=== PATIENT | male | born 1985 | race Caucasian/White ===

== ENCOUNTER → 2023-10-18 | Outpatient (CLI) | payer OTHER, SELFPAY ==
--- NOTE | 2023-10-18 17:50 | US_ITS ---
STUDY: THYROID ULTRASOUND REASON FOR EXAM: Male, 38 years old. THYROMEGALY TECHNIQUE: Ultrasound evaluation of the thyroid was performed with real-time and static bae-scale imaging. COMPARISON: None. FINDINGS: RIGHT LOBE: The right lobe of the thyroid gland is enlarged and measures 5.1 cm x 2.2 cm x 2.2 cm. There is a homogeneous echotexture. A 2 mm x 2 mm x 1 mm cyst is seen in the upper pole of the right lobe. LEFT LOBE: The left lobe of the thyroid gland measures 4.7 cm x 1.4 cm x 2.2 cm. There is a homogeneous echotexture. There are no demonstrated solid, cystic or complex lesions. ISTHMUS: The isthmus measures 4.0 mm. The regional lymph nodes are normal. US/Thyroid IMPRESSION: Mild enlargement of the right lobe of the thyroid. 2 mm x 2 mm x 1 mm cyst in the upper pole of the right lobe of the thyroid. Electronically Signed: Hiram Philippe MD at 14:37 EST ,
== END | disposition home or self-care (01) ==
LOC: US 17:48
PROVIDERS: PCP Internal Medicine; Visit Provider Internal Medicine
DX: E01.0 Iodine-deficiency related diffuse (endemic) goiter (principal)
CPT/HCPCS: 76536

== ENCOUNTER → 2024-08-20 | Outpatient (CLI) | payer OTHER, SELFPAY ==
--- NOTE | 2024-08-20 16:05 | RAD_ITS ---
INDICATION: left knee pain -- L knee pain, with sunrise view EXAMINATION/TECHNIQUE: X-RAY - LEFT XR Knee Complete 4 Views or More COMPARISON: None. FINDINGS: No acute fracture or malalignment. No significant degenerative changes are seen. No joint effusion. The soft tissues are unremarkable. RAD/Knee 4 or More Views IMPRESSION: No acute radiographic abnormalities. Electronically Signed: Fredi Velázquez MD at 17:29 EDT ,
== END | disposition home or self-care (01) ==
PROVIDERS: PCP Internal Medicine; Referring Provider Internal Medicine; Visit Provider Internal Medicine
DX: M25.562 Pain in left knee (principal)
CPT/HCPCS: 73564

== ENCOUNTER 2024-09-04 08:12 | Outpatient (RCR) | payer OTHER, BC, SELFPAY ==
--- NOTE | 2024-09-04 09:26 | HP.PTEVAL_ITS ---
Patient's Visit Information Visit Information Visit Information: ROCIO RODRIGUEZ is a 39 year old M referred to Physical Therapy by Dr. Viridiana Brady DO with a diagnosis of L knee pain. Date of Evaluation: 09/04/24 Physical Therapist: Teddy Garcia DPT Visit Plan Frequency: 1x/Week Duration: 6 Weeks Plan: 1) quad stretching, foam rolling 2) eccentric quad strengthening to progressively load L patellar tendon Subjective Subjective: Pt. is here today for his initial evaluation with diagnosis of L knee pain. Pt. reports having pain for ~3 weeks now, no mech of injury. Pt. reports increased pain with kneeling on soft surfaces, and with hyper flexion. Stairs are also painful. Pt. reports increased pain at night if doing those movements. Pt. reports no N/T. Pt. reports pain at medial patellar tendon. Pt. reports some occasional increase in pain with walking. His largest complaint is with kneeling. He reports kneeling on a soft surface, rather than hard surfaces. Pt. goes to do the gym and is able to complete without issues. Pt. is hopeful to reduce symptoms in order to get back to all recreational and work activities without limitations. Pain L knee: Pain Intensity (Out of 10): 1 Pain Intensity Range: 0 and 5 Objective Objective: POSTURE: Pt. has decent posture in stance. No major knee abnormalities. PALPATION: Pt. has tenderness along patellar tendon, no pain with rest of palpation. NEURO: normal sensation and normal DTR of BLEs. ROM: L knee: 0-0-135deg. Pain at end range flexion, reports tearing like sensation at patellar tendon. MMT: L knee: ext 56.3#, flexion 30.1#, R knee: ext 49.1#, flexion 28.9#. GAIT: Pt. has normal gait pattern without increase in symptoms. Special Tests L Knee Kelin - Meniscus: Negative L Knee Apley - Meniscus: Negative L Knee Anterior Drawer - ACL: Negative L Knee Posterior Drawer - PCL: Negative L Knee Valgus - MCL: Negative L Knee Varus - LCL: Negative L Knee Patellar Apprehension - PFS: Negative Balance/Special Test Scores Lower Extremity Functional Score: 63 Goals Goal 1:: LTG: Pt. to be I with HEP. Goal Time Frame: 4-6 Weeks Goal 2:: STG: Pt. to sleep throughout the night without increase in symptoms. Goal Time Frame: 2 Weeks Goal 3:: LTG: Pt. to have no pain with kneeling. Goal Time Frame: 4-6 Weeks Goal 4:: LTG: Pt. complete all recreational activities without increase in L k nee pain. Goal Time Frame: 4-6 Weeks Rehabilitation Potential Physical Therapy Diagnosis: Pt. has signs and symptoms consistent with L knee pain. Pt. has signs suggesting patellar tendinitis. I did not see much consistent with meniscal pathology at this point in time. Pt. would benefit from PT to work on quad stretching, and eccentric loading of L quad. Rehabilitation Potential: Excellent Anticipated Interventions Patient/Client Instruction: Educate patient on: Condition, Plan of Care, Risk Factors and Benefits of Fitness Program For the Purpose of:: To improve self management, To prevent re-injury, To improve ability to perform tasks related to life management and To improve tolerance to ADL's Therapeutic Exercise to Include: Strength training, Power training, Endurance training and Flexibilty training For the Purpose of:: To decrease pain, To increase ROM, To improve nutrient delivery to tissue, To increase oxygenation perfusion, To improve muscle performance and motor function, To increase tolerance to activity/condition/position, To decrease level of supervision to perform tasks and To improve ability of physical actions for home/community/work/leisure Text: Thank you for the opportunity to evaluate your patient. For Medicare and Medicare HMO plans, please review the plan of care and approve it. It will need to be FAXED BACK to us at [phone] for Medicare purposes. For Medicare only, by signing this I certify the plan of care. Please let me know if there are questions or concerns regarding this plan of care. Physician Signature: Date:
--- NOTE | 2024-11-20 08:17 | HP.PTDCSUM ---
Discharge Summary D/C summary: It has been my pleasure to treat ROCIO RODRIGUEZ referred by Dr. Viridiana Brady DO, with the diagnosis of L knee pain for a total of 1 visit(s). Discharge Date: Please see the following information for a summary of their discharge status. Pain L knee: Pain Intensity (Out of 10): 1 Goals Goal 1:: LTG: Pt. to be I with HEP. Goal 2:: STG: Pt. to sleep throughout the night without increase in symptoms. Goal 3:: LTG: Pt. to have no pain with kneeling. Goal 4:: LTG: Pt. complete all recreational activities without increase in L knee pain. Plan Plan: 1) quad stretching, foam rolling 2) eccentric quad strengthening to progressively load L patellar tendon D/C Information d/c sentence: If there are questions or concerns regarding this patient's physical therapy, please feel free to call me at [phone]. Thank you for the referral of this patient. Sincerely, Teddy Albaos, DPT Balance/Gait/Functional tests Balance/Special Test Scores Lower Extremity Functional Score: 63
== END 2024-09-04 19:00 | disposition home or self-care (01) ==
LOC: PT 08:12
PROVIDERS: PCP Internal Medicine; Referring Provider Internal Medicine; Visit Provider Internal Medicine
DX: M25.562 Pain in left knee (principal)
CPT/HCPCS: 97110; 97161

== ENCOUNTER → 2025-10-29 | Outpatient (CLI) | payer BC, SELFPAY ==
[2025-10-29 10:49] LABS: Color, Urine Yellow (Yellow); Glucose, Dipstick Normal (Normal); Ketone-Dipstick 5 mg/dl (Negative); Leukocyte Esterase-Dipstick Negative /ul (Negative); Nitrite-Dipstick Negative (Negative); Occult Blood-Urine 10 /ul (Negative); Protein-Dipstick 15 mg/dl (Negative); Specific Gravity, Urine 1.025 (1.002-1.030); Urine Bilirubin Dipstick Negative (Negative)
[2025-10-29 10:57] LABS: Mucous, Urine 3+ /hpf (<or=2+); Red Blood Cells-Urine 0-5 SEEN /hpf (0-5); Squamous Epithelial Cells - UA 0-5 SEEN /hpf (0-5)
[2025-10-29 11:06] LABS: Hematocrit 54.1 % (40-54); Immature Granulocytes Count 0.020 X10^3/uL (0.0-0.0); Mean Corp Hgb Conc 33.5 g/dL (32-36); Mean Corpuscular Volume 90.5 fL (80-94); Mean Platelet Vol. 11.8 fl (6.2-12.0); NRBC Flagged by Analyzer 0 % (0-5); Platelet Count 211 K/mm3 (150-450); RBC Distribution Width CV 12.7 % (11.6-14.6); RBC Distribution Width SD 41.6 fl (35.1-43.9); Red Blood Count 5.98 M/mm3 (4.6-6.2); White Blood Count 7.0 K/mm3 (4.4-11.0)
[2025-10-29 11:15] LABS: Hemoglobin 18.1 g/dL (13.0-16.5)
[2025-10-29 11:28] LABS: Creatinine, Urine (random) 378.00 mg/dL (39.00-259.00); Microalbumin,Random Urine 53.5 mg/L (<20 mg/L)
== END | disposition home or self-care (01) ==
PROVIDERS: PCP Internal Medicine; Referring Provider Internal Medicine; Visit Provider Internal Medicine
DX: E78.5 Hyperlipidemia, unspecified (principal)
CPT/HCPCS: 81001; 82043; 82570; 85025; 87086